=== PATIENT | female | born 1965 | race Caucasian/White ===

== ENCOUNTER 2019-04-30 08:30 | Inpatient (IN) | payer OTHER ==
[~2019-04-30] VITALS: Ht 149.9 cm; Wt 56.1 kg
[~2019-04-30 08:30] MED LIST: DULO20CA43; PRED-248
[2019-05-14] VITALS (24 sets, daily range): BP systolic 89–123; BP diastolic 47–66; PULSE 75–106; RESP 14–17; Ht 149.9 cm; Wt 56.1 kg
[2019-05-14] MEDS ORDERED: TRANEXAMIC ACID 1GM/100ML(PMX) 100 ML INTRA-OP X1 IVPB ONE (07:00)
[2019-05-14] MEDS ORDERED: ACETAMINOPHEN 500 MG TAB PO ONE (07:00)
[2019-05-14] MEDS ORDERED: TRANEXAMIC ACID 1GM/100ML(PMX) 100 ML PRE-OP X1 IVPB ONE (07:00)
[2019-05-14] MEDS ORDERED: POLYMYXIN B 500000 UNIT INJ ONE ×2 (07:00→16:30)
[2019-05-14] MEDS ORDERED: DEXAMETHASONE 4 MG/ML 1 ML INJ IV ONE (07:00)
[2019-05-14] MEDS ORDERED: CEFAZOLIN 2 GM/50 ML (PMX) 50 ML IVPB ONE (07:00)
[2019-05-14] MEDS ORDERED: LACTATED RINGER'S 1,000 ML IV SCH ×2 (07:00→19:06)
[2019-05-14] MEDS ORDERED: BACITRACIN 50000 UNITS INJ ONE ×2 (07:01→16:46)
[2019-05-14] MEDS ORDERED: ROCURONIUM 50 MG INJ ONE (07:26)
[2019-05-14] MEDS ORDERED: CEFAZOLIN 1 GM INJ ONE (07:26)
[2019-05-14] MEDS ORDERED: GLYCOPYRROLATE 0.4 MG INJ ONE (07:26)
[2019-05-14] MEDS ORDERED: PROPOFOL 20 ML ONE (07:26)
[2019-05-14] MEDS ORDERED: FENTAnyl 50 MCG/ML VIAL ONE ×2 (07:26→15:20)
[2019-05-14] MEDS ORDERED: NEOSTIGMINE 3 MG/3 ML SYRINGE ONE (07:26)
[2019-05-14] MEDS ORDERED: ONDANSETRON 4 MG INJ ONE (07:27)
[2019-05-14] MEDS ORDERED: DEXAMETHASONE 4 MG/ML 5 ML INJ ONE (07:27)
[2019-05-14] MEDS ORDERED: MIDAZOLAM 1 MG/ML 2 ML INJ ONE (07:27)
--- NOTE | 2019-05-14 09:28 | HPN ---
Date/Time of Note Date/Time of Note DATE: 05/14/19 TIME: 09:28 Interval H&P Admission Note Pt. seen H&P reviewed: No system changes DORINDA MONTANO May 14, 2019 09:28
--- NOTE | 2019-05-14 14:31 | PREAC ---
Date/Time of Note Date/Time of Note DATE: 05/14/19 TIME: 14:29 Anesthesia Eval and Record Evaluation Time Pre-Procedure Interview DATE: 05/14/19 TIME: 14:29 Age 54 Sex female NPO: 8 hrs Preoperative diagnosis RIGHT KNEE PRIMARY OA Planned procedure RIGHT TKA Past Medical History Past Medical History: Includes (OPIOD DEPENDENCE) Musculoskeletal: Rheumatoid arthritis GI: Other (HBC Ab+) Surgery & Anesthesia Issues No known issue Meds Anticoagulation: No Beta Giuliano within 24 hr: No Reason Beta Giuliano not given: Pt. not on B-Giuliano Reported Medications Duloxetine Hcl* (Cymbalta*) 20 Mg Capsule. 05/13/12 Prednisone (Prednisone) 10 Mg Tablet 05/13/12 Current Medications Lactated Ringer's 1,000 ml @ 125 mls/hr Q8H IV Last administered on 05/14/19at 09:52; Admin Dose 125 MLS/HR; Start 05/14/19 at 07:00; Stop 05/14/19 at 14:59 Meds reviewed: Yes Allergies Coded Allergies: No Known Drug Allergies (Verified Allergy, Mild, 05/14/19) Allergies Reviewed: Yes Labs/Studies Labs Reviewed: Reviewed by anesthesiologist Blood Bank Test 05/14/19 09:38 Antibody Screen NEGATIVE Blood Type O POSITIVE test: N/A Studies: ECG (RBBB), CXR (NAPD) Pre-procedure Exam Last vitals Vital Signs Date Temp Pulse Resp B/P (MAP) Pulse Ox O2 O2 Flow FiO2 Time Delivery Rate 05/14/19 98.6 75 16 123/59 98 Room Air 10:06 (80) Airway: Adequate mouth opening, Adequate thyromental dist Mallampati: Mallampati II Teeth: Normal Lung: Normal Heart: Normal ASA Physical Status ASA physical status: 2 Emergency: None Planned Anesthetic General/MAC: ETT Neuraxial: Spinal Nerve block: Femoral (right), Brachial plexus Planned Pain Management Sub-arachniod narcotics, Single shot nerve block, Parenteral pain med Pre-operative Attestations Prior to commencing anesthesia and surgery, the patient was re-evaluated, there was verification of: *The patient's identity *The results of appropriate recent lab work and preoperative vital signs *The above evaluation not changing prior to induction *Anesthetic plan, risk benefits, alternative and complications discussed with patient/family; questions answered; patient/family understands, accepts and wishes to proceed. Gil Leung M.D. May 14, 2019 14:31
[2019-05-14] MEDS ORDERED: morphine SULFATE/PF (10 MG/10 ML) INJ ONE (14:47)
[2019-05-14] MEDS ORDERED: ROPIVACAINE 0.5 % 30 ML VIAL ONE (14:47)
[2019-05-14] MEDS ORDERED: SUGAMMADEX SODIUM 200 MG/2 ML VIAL IV ONE (15:56)
[2019-05-14] MEDS ORDERED: TRANEXAMIC ACID 1GM/100ML(PMX) 200 ML ONE (17:11)
[2019-05-14] MEDS ORDERED: TRANEXAMIC ACID 1GM/100ML(PMX) 100 ML ONE (18:47)
--- NOTE | 2019-05-14 19:06 | SIPON ---
Date/Time of Note Date/Time of Note DATE: 05/14/19 TIME: 19:04 Operative Report Preoperative Diagnosis Right knee DJD Postoperative Diagnosis same Operation/Procedure Performed Right TKA Surgeon see signature line customer care assistant Leatha CHAMPION Anesthesia: spinal Estimated blood loss: 150 - 200 ml's Transfusion Required none Specimen bone Grafts/Implants DePuy Attune 5 femur, 3 tibia, 32 patella, 5 poly Complications none DORINDA MONTANO May 14, 2019 19:06
[2019-05-14] MEDS ORDERED: NALOXONE (0.4 MG/ML) INJ IV PRN ×2 (19:30→20:00)
[2019-05-14] MEDS ORDERED: oxyCODONE 5 MG TAB PO PRN (19:30)
[2019-05-14] MEDS ORDERED: NACL 0.9% 3 ML SYG IV SCH (19:30)
[2019-05-14] MEDS ORDERED: KETOROLAC 15 MG INJ IV PRN (19:30)
[2019-05-14] MEDS ORDERED: MAGNESIUM HYDROXIDE 30ML CUP PO PRN (19:30)
--- NOTE | 2019-05-14 19:43 | PAC ---
Date/Time of Note Date/Time of Note DATE: 05/14/19 TIME: 19:43 Post-Anesthesia Notes Post-Anesthesia Note Last documented vital signs Vital Signs Date Temp Pulse Resp B/P (MAP) Pulse Ox O2 O2 Flow FiO2 Time Delivery Rate 05/14/19 98.6 75 16 123/59 98 Room Air 10:06 (80) Activity: WNL Respiratory function: WNL Cardiovascular function: WNL Mental status: Baseline Pain reasonably controlled: Yes Hydration appropriate: Yes Nausea/Vomiting absent: Yes Gil Leung M.D. May 14, 2019 19:43
[2019-05-14] MEDS ORDERED: LABETALOL HCL 20MG INJ IV PRN (20:00)
[2019-05-14] MEDS ORDERED: KETOROLAC 30 MG INJ IV PRN (20:00)
[2019-05-14] MEDS ORDERED: MEPERIDINE 25 MG INJ IV PRN (20:00)
[2019-05-14] MEDS ORDERED: DIPHENHYDRAMINE 50 MG INJ IV PRN ×2 (20:00)
[2019-05-14] MEDS ORDERED: TRIMETHOBENZAMIDE 100 MG/ML VIAL IM PRN (20:00)
[2019-05-14] MEDS ORDERED: OXYCODONE/ACETAMINOPHEN (5/325) TAB PO PRN ×2 (20:00)
[2019-05-14] MEDS ORDERED: MIDAZOLAM 1 MG/ML 2 ML INJ IV PRN (20:00)
[2019-05-14] MEDS ORDERED: ALBUTEROL 0.083% (NEB) 2.5 MG/3 ML AMP HHN PRN (20:00)
[2019-05-14] MEDS ORDERED: ONDANSETRON 4 MG INJ IV PRN ×2 (20:00)
[2019-05-14] MEDS ORDERED: EPHEDrine 25 MG/5 ML SYG IV PRN (20:00)
[2019-05-14] MEDS ORDERED: ZOLPIDEM 5 MG TAB PO PRN (20:00)
[2019-05-14] MEDS ORDERED: hydrALAzine 20 MG INJ IV PRN (20:00)
[2019-05-14] MEDS ORDERED: HYDROmorphONE 0.5 MG/0.5 ML SYG IV PRN ×2 (20:00)
[2019-05-14] MEDS ORDERED: FENTAnyl 50 MCG/ML VIAL IV PRN ×3 (20:00)
[2019-05-14] MEDS ORDERED: NALBUPHINE HCL (10 MG/1 ML) INJ IV PRN (20:00)
[2019-05-14] MEDS ORDERED: HYDROmorphONE 1 MG/5 ML IV SYRINGE IV PRN ×3 (20:00)
[2019-05-14] MEDS ORDERED: IPRATROPIUM (NEB) 0.5 MG/2.5 ML AMP HHN PRN (20:00)
[2019-05-14] MEDS: GABAPENTIN 100 MG CAP PO SCH (21:22)
--- NOTE | 2019-05-14 21:22 | CONS ---
Assessment/Plan Assessment/Plan Hospital Course (Demo Recall) This is a 54-year female being admitted to the [facility] floor for: #1 right knee degenerative joint disease: Patient is POD #0 status post right total knee arthroplasty. Continue pain management as per Ortho. Weightbearing status as per orthopedic surgery. PT evaluation. Continue postoperative antibiotics as per orthopedic surgery. Aspirin 81 mg p.o. twice daily as per orthopedic surgery for DVT prophylaxis to be started tomorrow. #2 dysuria: Patient does have suprapubic tenderness palpation and she is having difficulty urinating. Will insert Severino and obtain a urinalysis. #3 rheumatoid arthritis: Currently her rheumatoid medications of methotrexate, Orencia, prednisone are on hold. She will resume this as an outpatient once cleared by orthopedic surgery and adobe layer #4 osteoarthritis: Supportive care will check vitamin D level. #5 Question mood disorder: We will need to confirm with the patient when she is on Cymbalta., Resume as indicated #6 DVT GI prophylaxis: SCDs, no GI prophylaxis indicated Further treatment strategy will be implemented as per the clinical course. Thank you for this consultation we will follow with you. Consultation Date/Type/Reason Admit Date/Time May 14, 2019 at 08:28 Date of Consultation: May 14, 2019 Reason for Consultation Medical management Requesting Provider: DORINDA MONTANO Date/Time of Note DATE: 05/14/19 TIME: 21:22 Hx of Present Illness This is a 54-year-old female with a past medical history of osteoarthritis, rheumatoid arthritis who is postop elective right total knee arthroplasty. Patient states that she has been dealing with pain in her right knee for approximately 3 years. She is already had a previous left total knee replacement. She does have a history of rheumatoid arthritis but has been off of her rheumatoid medications of methotrexate prednisone and Orencia for her surgery. She denies any chest pain nausea vomiting or diarrhea. Her pain is controlled postop, however she is having difficulty urinating. Allergies: NKDA Medications: Methotrexate Prednisone Cymbalta Orencia [place] Const: As per HPI Eyes : No pain discharge or redness or change in visual acuity ENT: No pain, sore throat, congestion, congestion, dysphagia or discharge Respiratory: No shortness of breath, cough, sputum, wheezing, or pleuritic pain Cardiovascular: No chest pain, palpitation, PND, or edema GI : no change in appetite, abdominal pain, nausea, vomiting, diarrhea, constipation, or change in the color his stool Genitourinary: As per HPI Musculoskeletal: As per HPI Skin: No rash, bruising or hives Neuro: No headache, dizziness, syncope, seizure, focal weakness Endocrine: No polyuria, polydipsia, temperature intolerance Psych: No hallucination, depression, anxiety or suicidal ideation Past Medical History Rheumatoid arthritis, osteoarthritis, degenerative joint disease Home Meds Reported Medications Duloxetine Hcl* (Cymbalta*) 20 Mg Capsule. 05/13/12 Prednisone (Prednisone) 10 Mg Tablet 05/13/12 Medications Current Medications Lactated Ringer's 1,000 ml @ 80 mls/hr [id number] IV ; Start 05/14/19 at 19:06 IV Flush (NS 3 ml) 3 ml PER PROTOCOL IV ; Start 05/14/19 at 19:30 Oxycodone HCl (Roxicodone) 15 mg Q4H PRN PO .PAIN; Start 05/14/19 at 19:30 Oxycodone HCl (Roxicodone) 10 mg Q4H PRN PO .PAIN; Start 05/14/19 at 19:30 Oxycodone HCl (Roxicodone) 5 mg Q4H PRN PO .PAIN; Start 05/14/19 at 19:30 Ketorolac Tromethamine (Toradol) 15 mg Q6H PRN IV .PAIN; Start 05/14/19 at 19:30 Ondansetron HCl (Zofran Inj) 4 mg Q4H PRN IV NAUSEA/VOMITING; Start 05/15/19 at 19:30 Cefazolin Sodium/ Dextrose 50 ml @ 100 mls/hr Q8H IVPB ; Start 05/14/19 at 19:30; Stop 05/15/19 at 11:59 Celecoxib (Celebrex) 100 mg BID PO ; Start 05/15/19 at 09:00 Gabapentin (Neurontin) 100 mg TID PO ; Start 05/14/19 at 21:00 Pantoprazole (Protonix Tab) 40 mg DAILY@06 PO ; Start 05/16/19 at 06:00 Docusate Sodium (Colace) 200 mg BID PO ; Start 05/15/19 at 09:00; Stop 05/18/19 at 08:59 Magnesium Hydroxide (Milk Of Mag) 30 ml HS PRN PO .CONSTIPATION; Start 05/14/19 at 19:30 Naloxone HCl (Narcan) 0.2 mg Q2M PRN IV .RESP RATE; Start 05/14/19 at 19:30 Aspirin (Halfprin) 81 mg BID PO ; Start 05/15/19 at 09:00 Hydromorphone HCl (Dilaudid) 0.2 mg PACU PRN IV MILD PAIN 1-3; Start 05/14/19 at 20:00; Stop 05/15/19 at 00:00 Hydromorphone HCl (Dilaudid) 0.4 mg PACU PRN IV MOD PAIN 4-6; Start 05/14/19 at 20:00; Stop 05/15/19 at 00:00 Hydromorphone HCl (Dilaudid) 0.6 mg PACU PRN IV SEVERE PAIN 7-10; Start 05/14/19 at 20:00; Stop 05/15/19 at 00:00 Fentanyl (Sublimaze) 25 mcg PACU ORDER PRN IV MILD PAIN 1-3; Start 05/14/19 at 20:00; Stop 05/15/19 at 00:00 Fentanyl (Sublimaze) 50 mcg PACU ORDER PRN IV MOD PAIN 4-6; Start 05/14/19 at 20:00; Stop 05/15/19 at 00:00 Fentanyl (Sublimaze) 75 mcg PACU ORDER PRN IV SEVERE PAIN 7-10; Start 05/14/19 at 20:00; Stop 05/15/19 at 00:00 Oxycodone/ Acetaminophen (Percocet (5/ 325)) 1 tab PACU ORDER PRN PO .PAIN 1-5; Start 05/14/19 at 20:00; Stop 05/15/19 at 00:00 Oxycodone/ Acetaminophen (Percocet (5/ 325)) 2 tab PACU ORDER PRN PO .PAIN 6-10; Start 05/14/19 at 20:00; Stop 05/15/19 at 00:00 Ondansetron HCl (Zofran Inj) 4 mg PACU ORDER PRN IV NAUSEA/VOMITING; Start 05/14/19 at 20:00; Stop 05/15/19 at 00:00 Trimethobenzamide HCl (Tigan) 200 mg PACU ORDER PRN IM NAUSEA/VOMITING; Start 05/14/19 at 20:00; Stop 05/15/19 at 00:00 Labetalol HCl (Labetalol) 5 mg PACU ORDER PRN IV HIGH BLOOD PRESSURE; Start 05/14/19 at 20:00; Stop 05/15/19 at 00:00 Hydralazine HCl (Apresoline) 5 mg PACU ORDER PRN IV HIGH BLOOD PRESSURE; Start 05/14/19 at 20:00; Stop 05/15/19 at 00:00 Ephedrine Sulfate 5 mg PACU ORDER PRN IV BLOOD PRESSURE SUPPORT; Start 05/14/19 at 20:00; Stop 05/15/19 at 00:00 Albuterol (Proventil 0.083% (Neb)) 2.5 mg PACU ORDER PRN HHN .WHEEZING; Start 05/14/19 at 20:00; Stop 05/15/19 at 00:00 Ipratropium [place] (Atrovent 0.02% (Neb)) 0.5 mg PACU ORDER PRN HHN .WHEEZING; Start 05/14/19 at 20:00; Stop 05/15/19 at 00:00 Meperidine HCl (Demerol) 25 mg PACU ORDER PRN IV .RIGORS; Start 05/14/19 at 20:00; Stop 05/15/19 at 00:00 Diphenhydramine HCl (Benadryl) 25 mg PACU ORDER PRN IV .PRURITUS; Start 05/14/19 at 20:00; Stop 05/15/19 at 00:00 Midazolam HCl (Versed) 0.5 mg PACU ORDER PRN IV .ANXIETY; Start 05/14/19 at 20:00; Stop 05/15/19 at 00:00 Hydromorphone HCl (Dilaudid) 0.2 mg Q2H PRN IV .PAIN 1-5; Start 05/14/19 at 20:00; Stop 05/15/19 at 20:00 Hydromorphone HCl (Dilaudid) 0.4 mg Q2H PRN IV .PAIN 6-10; Start 05/14/19 at 20:00; Stop 05/15/19 at 20:00 Ketorolac Tromethamine (Toradol) 30 mg Q6H PRN IV .PAIN 6-10; Start 05/14/19 at 20:00; Stop 05/17/19 at 19:59 Diphenhydramine HCl (Benadryl) 25 mg Q4H PRN IV .PRURITUS; Start 05/14/19 at 20:00; Stop 05/15/19 at 20:00 Nalbuphine HCl (Nubain) 10 mg Q4H PRN IV .PRURITUS; Start 05/14/19 at 20:00; Stop 05/15/19 at 20:00 Ondansetron HCl (Zofran Inj) 4 mg Q6H PRN IV .NAUSEA/VOMITING; Start 05/14/19 at 20:00; Stop 05/15/19 at 20:00 Zolpidem Tartrate (Ambien) 5 mg HS MAY REPEAT X 1 PRN PO .INSOMNIA; Start 05/14/19 at 20:00; Stop 05/15/19 at 20:00 Naloxone HCl (Narcan) 0.2 mg Q2M PRN IV .RESP RATE; Start 05/14/19 at 20:00; Stop 05/15/19 at 20:00 Miscellaneous Information (* Miscellaneous Pharmacy Order) DURAMORPH: 0.1 MG SPI... GIVEN NEURAXIAL XX ; Start 05/14/19 at 20:00 Allergies: Coded Allergies: No Known Drug Allergies (Verified Allergy, Mild, 05/14/19) Past Surgical History Left total knee replacement Status post right total knee replacement Hysterectomy Family History Significant Family History: no pertinent family hx Social History Alcohol Use: none Smoking Status: Never smoker Drug Use: none Exam/Review of Systems Exam Vitals Vital Signs Date Temp Pulse Resp B/P (MAP) Pulse Ox O2 O2 Flow FiO2 Time Delivery Rate 05/14/19 98 15 92/51 (65) 98 Nasal 2.0 20:44 Cannula 05/14/19 100.0 19:39 Intake and Output 05/13/19 05/13/19 05/14/19 1515:00 23:00 07:00 IntakeIntake Total 2000 ml BalanceBalance 2000 ml Exam General: P patient is pleasant female currently lying in bed, she does report suprapubic pressure. HEENT: Atraumatic, normocephalic. The pupils are equal, round and reactive. Extraocular motor are intact Neck: Supple with full range of motion. No rigidity or meningismus Chest: Nontender Lungs: Clear to auscultation bilaterally no crackles rales or wheezing Heart: Normal S1-S2, Regular rhythm and rate. No murmur, S3, or S4 Abdomen: Soft , nontender, nondistended , bowel sounds are present. No guarding no rebound tenderness , No masses or organomegaly. No costovertebral temporal angle mass Extremities: Left knee: Previous surgical scar, right knee currently in postop bandage/dressing Genitourinary: Suprapubic tenderness palpation Neurologic: Normal mental status, speech normal, cranial nerves II through XII are intact, motor and sensory are intact, gait not assessed secondary to patient being postop Medications Medication Current Medications Lactated Ringer's 1,000 ml @ 80 mls/hr [id number] IV ; Start 05/14/19 at 19:06 IV Flush (NS 3 ml) 3 ml PER PROTOCOL IV ; Start 05/14/19 at 19:30 Oxycodone HCl (Roxicodone) 15 mg Q4H PRN PO .PAIN; Start 05/14/19 at 19:30 Oxycodone HCl (Roxicodone) 10 mg Q4H PRN PO .PAIN; Start 05/14/19 at 19:30 Oxycodone HCl (Roxicodone) 5 mg Q4H PRN PO .PAIN; Start 05/14/19 at 19:30 Ketorolac Tromethamine (Toradol) 15 mg Q6H PRN IV .PAIN; Start 05/14/19 at 19:3 0 Ondansetron HCl (Zofran Inj) 4 mg Q4H PRN IV NAUSEA/VOMITING; Start 05/15/19 at 19:30 Cefazolin Sodium/ Dextrose 50 ml @ 100 mls/hr Q8H IVPB ; Start 05/14/19 at 19:30; Stop 05/15/19 at 11:59 Celecoxib (Celebrex) 100 mg BID PO ; Start 05/15/19 at 09:00 Gabapentin (Neurontin) 100 mg TID PO ; Start 05/14/19 at 21:00 Pantoprazole (Protonix Tab) 40 mg DAILY@06 PO ; Start 05/16/19 at 06:00 Docusate Sodium (Colace) 200 mg BID PO ; Start 05/15/19 at 09:00; Stop 05/18/19 at 08:59 Magnesium Hydroxide (Milk Of Mag) 30 ml HS PRN PO .CONSTIPATION; Start 05/14/19 at 19:30 Naloxone HCl (Narcan) 0.2 mg Q2M PRN IV .RESP RATE; Start 05/14/19 at 19:30 Aspirin (Halfprin) 81 mg BID PO ; Start 05/15/19 at 09:00 Hydromorphone HCl (Dilaudid) 0.2 mg PACU PRN IV MILD PAIN 1-3; Start 05/14/19 at 20:00; Stop 05/15/19 at 00:00 Hydromorphone HCl (Dilaudid) 0.4 mg PACU PRN IV MOD PAIN 4-6; Start 05/14/19 at 20:00; Stop 05/15/19 at 00:00 Hydromorphone HCl (Dilaudid) 0.6 mg PACU PRN IV SEVERE PAIN 7-10; Start 05/14/19 at 20:00; Stop 05/15/19 at 00:00 Fentanyl (Sublimaze) 25 mcg PACU ORDER PRN IV MILD PAIN 1-3; Start 05/14/19 at 20:00; Stop 05/15/19 at 00:00 Fentanyl (Sublimaze) 50 mcg PACU ORDER PRN IV MOD PAIN 4-6; Start 05/14/19 at 20:00; Stop 05/15/19 at 00:00 Fentanyl (Sublimaze) 75 mcg PACU ORDER PRN IV SEVERE PAIN 7-10; Start 05/14/19 at 20:00; Stop 05/15/19 at 00:00 Oxycodone/ Acetaminophen (Percocet (5/ 325)) 1 tab PACU ORDER PRN PO .PAIN 1-5; Start 05/14/19 at 20:00; Stop 05/15/19 at 00:00 Oxycodone/ Acetaminophen (Percocet (5/ 325)) 2 tab PACU ORDER PRN PO .PAIN 6-10; Start 05/14/19 at 20:00; Stop 05/15/19 at 00:00 Ondansetron HCl (Zofran Inj) 4 mg PACU ORDER PRN IV NAUSEA/VOMITING; Start 05/14/19 at 20:00; Stop 05/15/19 at 00:00 Trimethobenzamide HCl (Tigan) 200 mg PACU ORDER PRN IM NAUSEA/VOMITING; Start 05/14/19 at 20:00; Stop 05/15/19 at 00:00 Labetalol HCl (Labetalol) 5 mg PACU ORDER PRN IV HIGH BLOOD PRESSURE; Start 05/14/19 at 20:00; Stop 05/15/19 at 00:00 Hydralazine HCl (Apresoline) 5 mg PACU ORDER PRN IV HIGH BLOOD PRESSURE; Start 05/14/19 at 20:00; Stop 05/15/19 at 00:00 Ephedrine Sulfate 5 mg PACU ORDER PRN IV BLOOD PRESSURE SUPPORT; Start 05/14/19 at 20:00; Stop 05/15/19 at 00:00 Albuterol (Proventil 0.083% (Neb)) 2.5 mg PACU ORDER PRN HHN .WHEEZING; Start 05/14/19 at 20:00; Stop 05/15/19 at 00:00 Ipratropium [place] (Atrovent 0.02% (Neb)) 0.5 mg PACU ORDER PRN HHN .WHEEZING; Start 05/14/19 at 20:00; Stop 05/15/19 at 00:00 Meperidine HCl (Demerol) 25 mg PACU ORDER PRN IV .RIGORS; Start 05/14/19 at 20:00; Stop 05/15/19 at 00:00 Diphenhydramine HCl (Benadryl) 25 mg PACU ORDER PRN IV .PRURITUS; Start 05/14/19 at 20:00; Stop 05/15/19 at 00:00 Midazolam HCl (Versed) 0.5 mg PACU ORDER PRN IV .ANXIETY; Start 05/14/19 at 20:00; Stop 05/15/19 at 00:00 Hydromorphone HCl (Dilaudid) 0.2 mg Q2H PRN IV .PAIN 1-5; Start 05/14/19 at 20:00; Stop 05/15/19 at 20:00 Hydromorphone HCl (Dilaudid) 0.4 mg Q2H PRN IV .PAIN 6-10; Start 05/14/19 at 20:00; Stop 05/15/19 at 20:00 Ketorolac Tromethamine (Toradol) 30 mg Q6H PRN IV .PAIN 6-10; Start 05/14/19 at 20:00; Stop 05/17/19 at 19:59 Diphenhydramine HCl (Benadryl) 25 mg Q4H PRN IV .PRURITUS; Start 05/14/19 at 20:00; Stop 05/15/19 at 20:00 Nalbuphine HCl (Nubain) 10 mg Q4H PRN IV .PRURITUS; Start 05/14/19 at 20:00; Stop 05/15/19 at 20:00 Ondansetron HCl (Zofran Inj) 4 mg Q6H PRN IV .NAUSEA/VOMITING; Start 05/14/19 at 20:00; Stop 05/15/19 at 20:00 Zolpidem Tartrate (Ambien) 5 mg HS MAY REPEAT X 1 PRN PO .INSOMNIA; Start 05/14/19 at 20:00; Stop 05/15/19 at 20:00 Naloxone HCl (Narcan) 0.2 mg Q2M PRN IV .RESP RATE; Start 05/14/19 at 20:00; Stop 05/15/19 at 20:00 Miscellaneous Information (* Miscellaneous Pharmacy Order) DURAMORPH: 0.1 MG SPI... GIVEN NEURAXIAL XX ; Start 05/14/19 at 20:00 CARRIE SHEPHERD May 14, 2019 21:22
[2019-05-14] MEDS ORDERED: SOD CHLORIDE 0.9% 500 ML IV ONE (21:30)
[2019-05-14] MEDS: CEFAZOLIN 2 GM/50 ML (PMX) 50 ML IVPB SCH (22:30)
[2019-05-15] VITALS: BP 110/61; PULSE 81; RESP 16
[2019-05-15 00:11] VITALS: BP 110/61; PULSE 81; RESP 18
[2019-05-15 03:21] VITALS: BP 99/58; PULSE 88; RESP 16
[2019-05-15] MEDS: CEFAZOLIN 2 GM/50 ML (PMX) 50 ML IVPB SCH ×2 (03:39→12:11)
[2019-05-15] MEDS ORDERED: CEFTRIAXONE 1 GM/50 ML (PMX) 50 ML IVPB ONE (07:00)
[2019-05-15] MEDS: oxyCODONE 5 MG TAB PO PRN ×3 (07:06→18:58)
[2019-05-15 07:25] VITALS: BP 102/61; PULSE 70; RESP 18
[2019-05-15] MEDS: DOCUSATE SODIUM 100 MG CAP PO SCH ×2 (09:44→20:39)
[2019-05-15] MEDS: ASPIRIN (EC) 81 MG TAB PO SCH ×2 (09:44→20:39)
[2019-05-15] MEDS: GABAPENTIN 100 MG CAP PO SCH ×3 (09:45→20:39)
[2019-05-15] MEDS: CELECOXIB 100 MG CAP PO SCH ×2 (09:45→20:39)
[2019-05-15 14:09] VITALS: BP 104/62; PULSE 74; RESP 18
--- NOTE | 2019-05-15 15:03 | CONS ---
Assessment/Plan Assessment/Plan Assessment/Plan (Daily) 54 yo woman history of rheumatoid arthritis admitted after total right knee arthroplasty #1 right knee degenerative joint disease: Patient is POD #1 status post right total knee arthroplasty. Continue pain management as per Ortho. Weightbearing status as per orthopedic surgery. PT evaluation. Aspirin 81 mg p.o. twice daily as per orthopedic surgery for DVT prophylaxis. #2 dysuria: Resolving. Patient voiding spontaneously. #3 rheumatoid arthritis: Currently her rheumatoid medications of methotrexate, Orencia, prednisone are on hold. She will resume this as an outpatient once cleared by orthopedic surgery and director of global marketing #4 osteoarthritis: Will check vitamin D level. #5 mood disorder: Resume cymbalta #6 DVT GI prophylaxis: SCDs, no GI prophylaxis indicated Thank you for this consultation we will follow with you. Consultation Date/Type/Reason Admit Date/Time May 14, 2019 at 08:28 Initial Consult Date 05/14/19 Type of Consult Internal Medicine Reason for Consultation Postoperative management Requesting Provider: DORINDA MONTANO Date/Time of Note DATE: 05/15/19 TIME: 14:58 24 HR Interval Summary Free Text/Dictation No acute overnight events. Patient doing well. Exam/Review of Systems Exam Vitals Vital Signs Date Temp Pulse Resp B/P (MAP) Pulse Ox O2 O2 Flow FiO2 Time Delivery Rate 05/15/19 98.5 74 18 104/62 92 Room Air 14:09 (76) 05/14/19 2.0 20:44 Intake and Output 05/14/19 05/14/19 05/15/19 1515:00 23:00 07:00 IntakeIntake Total 650 ml 1190 ml OutputOutput Total 30 ml BalanceBalance 620 ml 1190 ml Exam General: Pleasant woman currently lying in bed in no distress. HEENT: Atraumatic, normocephalic. The pupils are equal, round and reactive. Extraocular motor are intact Neck: Supple with full range of motion. No rigidity or meningismus Chest: Nontender Lungs: Clear to auscultation bilaterally no crackles rales or wheezing Heart: Normal S1-S2, Regular rhythm and rate. No murmur, S3, or S4 Abdomen: Soft , nontender, nondistended , bowel sounds are present. No guarding no rebound tenderness , No masses or organomegaly. No costovertebral temporal angle mass Extremities: Left knee: Previous surgical scar, right knee currently in postop bandage/dressing Results Result Diagram: 05/15/19 0455 05/15/19 0455 Results 24hrs Laboratory Tests Test 05/14/19 21:19 05/15/19 04:55 05/15/19 08:19 White Blood Count 7.2 11.8 #H Red Blood Count 3.42 L 3.11 L Hemoglobin 10.4 L 9.3 L Hematocrit 31.4 L 28.1 L Mean Corpuscular Volume 91.8 90.4 Mean Corpuscular Hemoglobin 30.4 29.9 Mean Corpuscular 33.1 33.1 Hemoglobin Concent Red Cell Distribution Width 13.3 13.2 Platelet Count 234 228 Mean Platelet Volume 9.8 10.2 Immature Granulocytes % 0.600 H 0.900 H Neutrophils % 93.2 H 87.9 H Lymphocytes % 5.0 L 4.6 L Monocytes % 1.1 6.5 Eosinophils % 0.0 0.0 Basophils % 0.1 0.1 Nucleated Red Blood Cells % 0.0 0.0 Immature Granulocytes # 0.040 H 0.110 H Neutrophils # 6.7 10.3 H Lymphocytes # 0.4 L 0.5 L Monocytes # 0.1 L 0.8 Eosinophils # 0.0 0.0 Basophils # 0.0 0.0 Nucleated Red Blood Cells # 0.0 0.0 Sodium Level 139 140 Potassium Level 4.0 3.9 Chloride Level 106 109 Carbon Dioxide Level 27 24 Anion Gap 6 7 Blood Urea Nitrogen 12 12 Creatinine 0.49 0.43 L Est Glomerular Filtrat > 60 > 60 Rate mL/min Glucose Level 157 137 Calcium Level 8.3 L 8.2 L Total Bilirubin 0.3 Direct Bilirubin 0.00 Indirect Bilirubin 0.3 Aspartate Amino Transf (AST/SGOT) 21 Alanine 24 Aminotransferase (ALT/SGPT) Alkaline Phosphatase 61 Total Protein 5.8 L Albumin 3.1 L Globulin 2.70 Albumin/Globulin Ratio 1.14 Lab Scanned Report REFERENCE LAB Medications Medication Current Medications IV Flush (NS 3 ml) 3 ml PER PROTOCOL IV Last administered on 05/15/19at 03:43; Admin Dose 3 ML; Start 05/14/19 at 19:30 Oxycodone HCl (Roxicodone) 15 mg Q4H PRN PO .PAIN; Start 05/14/19 at 19:30 Oxycodone HCl (Roxicodone) 10 mg Q4H PRN PO .PAIN; Start 05/14/19 at 19:30 Oxycodone HCl (Roxicodone) 5 mg Q4H PRN PO .PAIN Last administered on 05/15/19at 07:06; Admin Dose 5 MG; Start 05/14/19 at 19:30 Ketorolac Tromethamine (Toradol) 15 mg Q6H PRN IV .PAIN; Start 05/14/19 at 19:30 Ondansetron HCl (Zofran Inj) 4 mg Q4H PRN IV NAUSEA/VOMITING Last administered on 05/15/19at 03:42; Admin Dose 4 MG; Start 05/15/19 at 19:30 Celecoxib (Celebrex) 100 mg BID PO Last administered on 05/15/19at 09:45; Admin Dose 100 MG; Start 05/15/19 at 09:00 Gabapentin (Neurontin) 100 mg TID PO Last administered on 05/15/19at 13:11; Admin Dose 100 MG; Start 05/14/19 at 21:00 Pantoprazole (Protonix Tab) 40 mg DAILY@06 PO ; Start 05/16/19 at 06:00 Docusate Sodium (Colace) 200 mg BID PO Last administered on 05/15/19at 09:44; Admin Dose 200 MG; Start 05/15/19 at 09:00; Stop 05/18/19 at 08:59 Magnesium Hydroxide (Milk Of Mag) 30 ml HS PRN PO .CONSTIPATION; Start 05/14/19 at 19:30 Naloxone HCl (Narcan) 0.2 mg Q2M PRN IV .RESP RATE; Start 05/14/19 at 19:30 Aspirin (Halfprin) 81 mg BID PO Last administered on 05/15/19at 09:44; Admin Dose 81 MG; Start 05/15/19 at 09:00 Hydromorphone HCl (Dilaudid) 0.2 mg Q2H PRN IV .PAIN 1-5; Start 05/14/19 at 20:00; Stop 05/15/19 at 20:00 Hydromorphone HCl (Dilaudid) 0.4 mg Q2H PRN IV .PAIN 6-10; Start 05/14/19 at 20:00; Stop 6/28/19 at 20:00 Ketorolac Tromethamine (Toradol) 30 mg Q6H PRN IV .PAIN 6-10; Start 05/14/19 at 20:00; Stop 05/17/19 at 19:59 Diphenhydramine HCl (Benadryl) 25 mg Q4H PRN IV .PRURITUS; Start 05/14/19 at 20:00; Stop 05/15/19 at 20:00 Nalbuphine HCl (Nubain) 10 mg Q4H PRN IV .PRURITUS; Start 05/14/19 at 20:00; Stop 05/15/19 at 20:00 Ondansetron HCl (Zofran Inj) 4 mg Q6H PRN IV .NAUSEA/VOMITING; Start 05/14/19 at 20:00; Stop 05/15/19 at 20:00 Zolpidem Tartrate (Ambien) 5 mg HS MAY REPEAT X 1 PRN PO .INSOMNIA; Start 05/14/19 at 20:00; Stop 05/15/19 at 20:00 Naloxone HCl (Narcan) 0.2 mg Q2M PRN IV .RESP RATE; Start 05/14/19 at 20:00; Stop 05/15/19 at 20:00 Miscellaneous Information (* Miscellaneous Pharmacy Order) DURAMORPH: 0.1 MG SPI... GIVEN NEURAXIAL XX ; Start 05/14/19 at 20:00 KARINA SALGADO MD May 15, 2019 15:03
[2019-05-15] MEDS ORDERED: ONDANSETRON 4 MG INJ IV PRN (19:30)
[2019-05-15 19:53] VITALS: BP 103/53; PULSE 81; RESP 20
[2019-05-16] MEDS: oxyCODONE 5 MG TAB PO PRN ×4 (01:01→15:04)
[2019-05-16 01:25] VITALS: BP 109/58; PULSE 72; RESP 18
[2019-05-16] MEDS ORDERED: PANTOPRAZOLE (EC) 40 MG TAB PO SCH (06:00)
[2019-05-16 07:18] VITALS: BP 110/57; PULSE 76; RESP 18
[2019-05-16] MEDS: ASPIRIN (EC) 81 MG TAB PO SCH (08:39)
[2019-05-16] MEDS: DOCUSATE SODIUM 100 MG CAP PO SCH (08:39)
[2019-05-16] MEDS: CELECOXIB 100 MG CAP PO SCH (08:39)
[2019-05-16] MEDS: GABAPENTIN 100 MG CAP PO SCH ×2 (08:39→13:27)
--- NOTE | 2019-05-16 11:00 | CONS ---
Assessment/Plan Assessment/Plan Assessment/Plan (Daily) 54 yo woman history of rheumatoid arthritis admitted after total right knee arthroplasty #1 right knee degenerative joint disease: Patient is POD #1 status post right total knee arthroplasty. Continue pain management as per Ortho. Weightbearing status as per orthopedic surgery. PT evaluation. Aspirin 81 mg p.o. twice daily as per orthopedic surgery for DVT prophylaxis. #2 dysuria: Resolving. Patient voiding spontaneously. #3 rheumatoid arthritis: Currently her rheumatoid medications of methotrexate, Orencia, prednisone are on hold. She will resume this as an outpatient once cleared by orthopedic surgery and ethics manager #4 osteoarthritis: Will check vitamin D level. #5 mood disorder: Resume cymbalta #6 DVT GI prophylaxis: SCDs, no GI prophylaxis indicated Dispo: Medically clear for discharge home from my perspective. Consultation Date/Type/Reason Admit Date/Time May 16, 2019 at 07:56 Initial Consult Date 05/14/19 Type of Consult Internal Medicine Requesting Provider: DORINDA MONTANO Date/Time of Note DATE: 05/16/19 TIME: 10:59 24 HR Interval Summary Free Text/Dictation Patient feeling well today. Pain adequately controlled. Ambulated with physical therapy. Exam/Review of Systems Exam Vitals Vital Signs Date Temp Pulse Resp B/P (MAP) Pulse Ox O2 O2 Flow FiO2 Time Delivery Rate 05/16/19 98.6 76 18 110/57 97 Room Air 07:18 (74) 05/14/19 2.0 20:44 Intake and Output 05/15/19 05/15/19 05/16/19 1515:00 23:00 07:00 IntakeIntake Total 820 ml 200 ml OutputOutput Total 1500 ml 450 ml BalanceBalance -680 ml -250 ml Exam General: Pleasant woman currently lying in bed in no distress. HEENT: Atraumatic, normocephalic. The pupils are equal, round and reactive. Extraocular motor are intact Neck: Supple with full range of motion. No rigidity or meningismus Chest: Nontender Lungs: Clear to auscultation bilaterally no crackles rales or wheezing Heart: Normal S1-S2, Regular rhythm and rate. No murmur, S3, or S4 Abdomen: Soft , nontender, nondistended , bowel sounds are present. No guarding no rebound tenderness , No masses or organomegaly. No costovertebral temporal angle mass Extremities: Left knee: Previous surgical scar, right knee currently in postop bandage/dressing Results Result Diagram: 05/16/19 0446 05/16/19 0446 Results 24hrs Laboratory Tests Test 05/16/19 04:46 White Blood Count 6.6 # Red Blood Count 2.87 L Hemoglobin 8.7 L Hematocrit 26.2 L Mean Corpuscular Volume 91.3 Mean Corpuscular Hemoglobin 30.3 Mean Corpuscular Hemoglobin Concent 33.2 Red Cell Distribution Width 13.6 Platelet Count 211 Mean Platelet Volume 10.4 Immature Granulocytes % 0.300 Neutrophils % 55.7 Lymphocytes % 29.4 Monocytes % 14.1 H Eosinophils % 0.2 Basophils % 0.3 Nucleated Red Blood Cells % 0.0 Immature Granulocytes # 0.020 Neutrophils # 3.7 Lymphocytes # 1.9 Monocytes # 0.9 Eosinophils # 0.0 Basophils # 0.0 Nucleated Red Blood Cells # 0.0 Sodium Level 141 Potassium Level 3.7 Chloride Level 109 Carbon Dioxide Level 28 Anion Gap 4 L Blood Urea Nitrogen 12 Creatinine 0.53 Est Glomerular Filtrat Rate mL/min > 60 Glucose Level 95 # Calcium Level 7.9 L Medications Medication Current Medications IV Flush (NS 3 ml) 3 ml PER PROTOCOL IV Last administered on 05/15/19at 03:43; Admin Dose 3 ML; Start 05/14/19 at 19:30 Oxycodone HCl (Roxicodone) 15 mg Q4H PRN PO .PAIN; Start 05/14/19 at 19:30 Oxycodone HCl (Roxicodone) 10 mg Q4H PRN PO .PAIN Last administered on 05/16/19at 10:55; Admin Dose 10 MG; Start 05/14/19 at 19:30 Oxycodone HCl (Roxicodone) 5 mg Q4H PRN PO .PAIN Last administered on 05/15/19at 07:06; Admin Dose 5 MG; Start 05/14/19 at 19:30 Ketorolac Tromethamine (Toradol) 15 mg Q6H PRN IV .PAIN; Start 05/14/19 at 19:30 Ondansetron HCl (Zofran Inj) 4 mg Q4H PRN IV NAUSEA/VOMITING Last administered on 05/15/19at 03:42; Admin Dose 4 MG; Start 05/15/19 at 19:30 Celecoxib (Celebrex) 100 mg BID PO Last administered on 05/16/19 08:39; Admin Dose 100 MG; Start 05/15/19 at 09:00 Gabapentin (Neurontin) 100 mg TID PO Last administered on 05/16/19 08:39; Admin Dose 100 MG; Start 05/14/19 at 21:00 Pantoprazole (Protonix Tab) 40 mg DAILY@06 PO Last administered on 05/16/19 05:42; Admin Dose 40 MG; Start 05/16/19 at 06:00 Docusate Sodium (Colace) 200 mg BID PO Last administered on 05/16/19 08:39; Admin Dose 200 MG; Start 05/15/19 at 09:00; Stop 05/18/19 at 08:59 Magnesium Hydroxide (Milk Of Mag) 30 ml HS PRN PO .CONSTIPATION; Start 05/14/19 at 19:30 Naloxone HCl (Narcan) 0.2 mg Q2M PRN IV .RESP RATE; Start 05/14/19 at 19:30 Aspirin (Halfprin) 81 mg BID PO Last administered on 05/16/19at 08:39; Admin Dose 81 MG; Start 05/15/19 at 09:00 Ketorolac Tromethamine (Toradol) 30 mg Q6H PRN IV .PAIN 6-10; Start 05/14/19 at 20:00; Stop 05/17/19 at 19:59 Miscellaneous Information (* Miscellaneous Pharmacy Order) DURAMORPH: 0.1 MG SPI... GIVEN NEURAXIAL XX ; Start 05/14/19 at 20:00 KARINA SALGADO MD May 16, 2019 11:00
[2019-05-16 14:11] VITALS: BP 112/71; PULSE 80; RESP 18
--- NOTE | 2019-05-16 14:14 | PDOCDIS ---
Discharge Instructions DIAGNOSIS Discharge Diagnosis Right total knee replacement CONDITION [id number] Patient Condition: [id number] Good HOME CARE INSTRUCTIONS: Mark Diet Instructions: Dena Regular ACTIVITY: Mark Activity Restrictions: [id number] Slowly Increase Activity Rest between Activity Avoid heavy lifting Do not Drive Do not operate Power Tool Avoid Heavy Housework [id number] Bathing Restrictions: [id number] Shower FOLLOW UP/APPOINTMENTS Follow-up Plan 2 weeks REFERRALS Mark Agency Name and Phone [id number] Number: [phone] DORINDA MONTANO May 16, 2019 14:14
--- NOTE | 2019-05-16 14:17 | DS ---
Date/Time of Note Date/Time of Note DATE: 05/16/19 TIME: 14:16 Discharge Summary Admission/Discharge Info Admit Date/Time May 16, 2019 at 07:56 Discharge Date/Time Discharge Diagnosis Right total knee replacement Patient Condition: Good Hospital Course The patient was admitted for advanced arthritis of her right knee. She underwent right total knee replacement on May 14, 2019. The patient progressed well with physical therapy. Pain is controlled with oral pain medication. Patient is ambulatory with a walker. She is advised to continue home health physical therapy and follow-up in 2 weeks Home Meds Reported Medications Duloxetine Hcl* (Cymbalta*) 20 Mg Capsule. 05/13/12 Prednisone (Prednisone) 10 Mg Tablet 05/13/12 Follow-up Plan 2 weeks Primary Care Provider Not On Staff Doctor Time spent on discharge: < 30 minutes Pending Labs Laboratory Tests Test 05/16/19 04:46 White Blood Count 6.6 10^3/ul (4.8-10.8) Red Blood Count 2.87 10^6/ul (4.20-5.40) Hemoglobin 8.7 g/dl (12.0-16.0) Hematocrit 26.2 % (37.0-47.0) Mean Corpuscular Volume 91.3 fl (82.0-101.0) Mean Corpuscular Hemoglobin 30.3 pg (29.0-33.0) Mean Corpuscular Hemoglobin Concent 33.2 g/dl (32.0-37.0) Red Cell Distribution Width 13.6 % (11.5-14.5) Platelet Count 211 10^3/UL (140-415) Mean Platelet Volume 10.4 fl (7.4-10.4) Immature Granulocytes % 0.300 % (0.001-0.429) Neutrophils % 55.7 % (39.0-77.0) Lymphocytes % 29.4 % (15.0-51.0) Monocytes % 14.1 % (0.0-11.0) Eosinophils % 0.2 % (0.0-7.0) Basophils % 0.3 % (0.0-2.0) Nucleated Red Blood Cells % 0.0 /100WBC (0.0-0.0) Immature Granulocytes # 0.020 10^3/ul (0.0-0.031) Neutrophils # 3.7 10^3/ul (1.6-7.5) Lymphocytes # 1.9 10^3/ul (0.8-2.9) Monocytes # 0.9 10^3/ul (0.3-0.9) Eosinophils # 0.0 10^3/ul (0.0-0.5) Basophils # 0.0 10^3/ul (0.0-0.1) Nucleated Red Blood Cells # 0.0 10^3/ul (0.0-0.0) Sodium Level 141 mmol/L (135-144) Potassium Level 3.7 mmol/L (3.5-5.1) Chloride Level 109 mmol/L (97-110) Carbon Dioxide Level 28 mmol/L (21-31) Anion Gap 4 (5-13) Blood Urea Nitrogen 12 mg/dl (7-20) Creatinine 0.53 mg/dl (0.44-1.00) Est Glomerular Filtrat Rate mL/min > 60 mL/min (>60) Glucose Level 95 mg/dl (70-220) Calcium Level 7.9 mg/dl (8.4-10.2) DORINDA MONTANO May 16, 2019 14:17
--- NOTE | 2019-05-28 10:00 | OPR ---
Date/Time of Note Date/Time of Note DATE: 05/28/19 TIME: 09:57 Operative Report Procedure Date: May 14, 2019 Preoperative Diagnosis Right knee osteoarthritis Postoperative Diagnosis Same Operation/Procedure Performed Right total knee replacement Surgeon see signature line Forensic Dna Analyst CHAYO Zhang Anesthesia Type: spinal Estimated Blood Loss: 150 - 200 ml's Transfusion none Specimen Bone Grafts/Implants Attune knee, 5 femur, 3 tibia, 32 patella Tubes/Drains None Complications none Pt Condition Post Procedure: stable Disposition: PACU Indications The patient is a 54-year-old female with advanced osteoarthritis of her right knee, she has a valgus deformity Procedure Description The patient was placed supine on the operating room table. The right knee was prepped and draped in usual manner. A valgus deformity of 20 degrees was noted. An anterior incision was made. A mid vastus approach was used. Hemostasis was achieved with electrocautery and aqua mantis. A mid vastus approach was used patella displaced laterally without everting it. Using intramedullary alignment, the distal femoral cut was made in 5 degrees of valgus. The femur was measured to be a size 5 from the [employer] knee system. Anterior posterior and chamfer cuts were made. A notch was cut in the distal femur to accommodate the posterior stabilized femoral component. The PCL was sacrificed. Remnants of the menisci were removed. The tibia was cut using external alignment and the patella cut using a freehand technique. Trials were inserted including a 5 narrow femur, size 3 tibia, 6 mm of polyethylene and 32 patella. This resulted in a stable knee with full range of motion and excellent tracking and balance. Once satisfactory alignment was confirmed, the trials were removed the knee was thoroughly irrigated and injected with pain cocktail. Final components were cemented in place including a 5 narrow femur, 3 tibia and 32 patella. Polyethylene was placed and the knee had full range of motion. The knee was irrigated and injected with Marcaine and Toradol and closed in layers using #1 strata fix for deep fascia, 2-0 Vicryl for subcutaneous tissue and 3-0 Monocryl for the skin. Patient was transferred to the recovery room in stable condition DORINDA MONTANO May 28, 2019 10:00
== END 2019-05-16 16:30 | disposition home health service (06) | DRG 470 ==
LOC: INTOOBSV 05-14 08:28 → REC 05-14 08:28 → MS1 05-14 19:09 → REC 05-14 20:55 → OBSVTOIN 05-16 07:56
PROVIDERS: ADMIT Orthopaedic Surgery; ATTEND Orthopaedic Surgery
PROC: 0SRC0J9 Replacement of Right Knee Joint with Synthetic Substitute, Cemented, Open Approach (ICD-10-PCS; principal; 2019-05-14 08:30)
DX: M17.11 Unilateral primary osteoarthritis, right knee (principal); R30.0 Dysuria; M06.9 Rheumatoid arthritis, unspecified; F39 Unspecified mood [affective] disorder; Z96.652 Presence of left artificial knee joint
CPT/HCPCS: 80048; 80053; 81001; 85025; 86850; 86900; 86901; 87081; 88304; 88311; 97110; 97116; 97161; 99217; C1776; G0378; J0171; J0690; J0696; J0735; J1100; J1885; J2250; J2274; J2405; J2710; J2795; J3010; J7040; J7120